=== PATIENT | female | born 1965 | race Caucasian/White ===

== ENCOUNTER → 2017-01-02 | Outpatient (REF) ==
[2006-02-15 19:00] VITALS: PULSE 96; TEMP 97.2
[2017-01-02 16:42] LABS: THYROID STIMULATING HORMONE 3.33 uIU/mL (0.465-4.680)
== END ==
LOC: ZLAB.WCH 15:55
PROVIDERS: Medical Genetics Clinical Genetics (M.D.)
DX: Z01.89 Encounter for other specified special examinations (principal)

== ENCOUNTER → 2017-02-19 | Outpatient (REF) ==
[2006-02-15 19:00] VITALS: PULSE 96; TEMP 97.2
== END ==
LOC: ZLAB.WCH 10:19
DX: Z01.89 Encounter for other specified special examinations (principal)

== ENCOUNTER → 2017-03-03 | Outpatient (REF) ==
[2006-02-15 19:00] VITALS: PULSE 96; TEMP 97.2
[2017-03-03 06:40] LABS: BASO % 0.1 % (0.0-2.0); GRAN # 9.7 (1.4-6.5); GRAN % 85.5 % (42.2-75.2); LYMPH # 0.8 (1.2-3.4); LYMPH % 7.1 % (20.0-51.0); MEAN CELL VOLUME 81 fl (80.0-100.0); MEAN CORPUSCULAR HGB CONC 30 g/dl (33.0-37.0); MEAN PLATELET VOLUME 10.9 fl (7.4-10.4); MONO # 0.8 (0.1-0.6); MONO % 6.9 % (1.7-9.3); PLATELET COUNT 265 K/mm3 (130-400); RED BLOOD COUNT 4.18 M/mm3 (4.10-5.30); WHITE BLOOD COUNT 11.4 K/mm3 (4.8-10.8)
[2017-03-03 06:46] LABS: HEMATOCRIT 33.8 % (37.0-47.0); HEMOGLOBIN 10.2 g/dl (12.5-16.0); MEAN CORPUSCULAR HEMOGLOBIN 24 pg (27.0-31.0)
== END ==
LOC: ZMSC 06:36
PROVIDERS: Obstetrics & Gynecology
DX: Z01.89 Encounter for other specified special examinations (principal)

== ENCOUNTER → 2017-11-08 | Outpatient (REF) ==
[2006-02-15 19:00] VITALS: PULSE 96; TEMP 97.2
== END ==
LOC: ZLAB.WCH 18:01
DX: Z01.89 Encounter for other specified special examinations (principal)

== ENCOUNTER → 2019-11-06 | Outpatient (CLI) | payer BC ==
[2006-02-15 19:00] VITALS: PULSE 96; TEMP 97.2
== END ==
LOC: MC.RAD 15:30
DX: Z12.31 Encounter for screening mammogram for malignant neoplasm of breast (principal)